=== PATIENT | male | born 1930 | race Caucasian/White ===

== ENCOUNTER 2016-10-09 08:55 | Inpatient (IN) | payer OTHER, MEDICARE ==
[~2016-10-09 08:55] MED LIST: ACETAMINOPHEN 325 MG TABLET PO PRN; ALBUTEROL SULFATE 2.5 MG/3 ML VIAL.NEB IH PRN; BISACODYL 5 MG TABLET.DR PO PRN; ENEMEEZ RC PRN; FLUNISOLIDE NS PRN; HYDROcodone/ACETAMINOPHEN 5 ML UDC PO PRN; HYDROmorphone HCL 1 MG/ML DISP.SYRIN IV PRN; LORazepam 2 MG/ML DISP.SYRIN IV PRN; ONDANSETRON HCL 4 MG TABLET PO PRN; ONDANSETRON HCL/PF 2 MG/ML VIAL IV PRN; [UNRECOGNIZED DRUG - OTHER] EACHEYE PRN
[2016-10-09] MEDS ORDERED: POLYETHYLENE GLYCOL 17 GM PO SCH (09:00)
[2016-10-09] MEDS ORDERED: LEVOTHYROXINE SODIUM 75 MCG TABLET PO SCH (09:00)
--- OUTSIDE RECORDS SUMMARY | 2016-10-09 09:08 | XMS REPORT | Continuity of Care Document ---
:1930 Author Organization [facility] ([facility]) Address [address] [place] [address] Phone [phone] Care Team Providers Name Role Phone Unavailable Primary Care Provider Unavailable Source Comments This disclosure is being made pursuant to the Care Everywhere program, applicable federal and state laws, and may not contain all informaitonavailable regarding this patient.[facility] ([facility]) Active Allergies and Adverse Reactions Not on File Current Medications Not on file Active Problems Not on file Social History Tobacco Use Types Packs/Day Years Used Date Never Assessed Plan of Care Health Maintenance Due Date Last Done Comments Hepatitis B Vaccine (1 of 3 - Primary Series) 1929 Tdap Vaccine 1940 Lipid Disorder Screening 1947 Td Vaccine 1947 Zoster Vaccine 1989 Pneumococcal Vaccine (1 of 2 - PCV13) 1994 Influenza Vaccine: Seasonal (#1) 01/08/2016 Results from Last 3 Months Not on file
[2016-10-09] MEDS: TIOTROPIUM BROMIDE 5 CAP INHALER IH SCH (09:24)
[2016-10-09] MEDS: DOCUSATE SODIUM 100 MG CAPSULE PO SCH (09:24)
[2016-10-09] MEDS: ALBUTEROL SULFATE 2.5 MG/3 ML VIAL.NEB IH SCH ×3 (11:00→18:20)
[2016-10-09] MEDS: POLYETHYLENE GLYCOL 3350 119 GM BTL PO SCH (11:08)
[2016-10-09] MEDS: LEVOTHYROXINE SODIUM 75 MCG TABLET PO SCH (11:08)
[2016-10-09] MEDS: SENNOSIDES/DOCUSATE SODIUM 1 TAB TABLET PO SCH (11:08)
[2016-10-09] MEDS ORDERED: ALBUTEROL SULFATE 2.5 MG/3 ML VIAL.NEB IH PRN (14:58)
[2016-10-09 15:14] VITALS: BP 90/54
--- NOTE | 2016-10-09 18:54 | HP ---
Chief Complaint - Chief Complaint Date of Service: 10/09/16 Time of Service: 18:42 Chief Complaint: For hospice respite care History of Present Illness: This is an 86 y/o man with a history of stroke in 2012, but with also a very rapid decline due to progressive dementia in the last six months, severe enough to interfere with oral intake to qualify for hospice, who presents today to the [facility] for the hospice respite benefit. He is comfortable, but taking very little by mouth. His family simply wishes him to remain comfortable, and we will comply with this wish. - Patient's Past Medical History Patient History - Medical: Dementia, GERD, Osteoarthritis Patient History - Cardiac/Respiratory: Asthma, COPD, CVA/Stroke, Hypertension Patient History - Cancer: No Hx of Cancer Patient History - Surgical Procedures: Appendectomy, Colonoscopy, Other - right index finger amputation Patient History - Other: None - Family History Mother Family History - Medical: , History Unknown Family History - Cardiac/Respiratory: History Unknown Family History - Cancer: History Unknown Father Family History - Medical: , History Unknown Family History - Cardiac/Respiratory: Coronary Heart Disease Family History - Cancer: History Unknown - Social History Living Situations: other Abuse History: No History of abuse Psych History: No pertinent hx Smoking Status: Former smoker Have you smoked in the past 12 months: No Do you dip or chew tobacco: No Patient requests Smoking Cessation Consult: No Initiate information on Smoking Cessation: No Alcohol Use: none Drug Use: none - Immunizations Immunizations Up to Date: Yes Hx Pneumococcal Vaccination: More Information Required to Determine History of Influenza Vaccine: More Information Required to Determine Review Of Systems (GEN) - Review of Systems Generalized/Overall Review: Present: No Symptoms Reported - unable to provide due to dementia. can ask to go to the bathroom. occasionally says yes or no. Misc: All systems neg except as marked Immunizations: IMMUNIZATION HX Immunizations Up to Date Yes History of Influenza Vaccine More Information Required Hx Pneumococcal Vaccination More Information Required Allergies/Adverse Reactions: Allergies Allergy/AdvReac Type Severity Reaction Status Date / Time tetracycline Allergy Verified 10/09/16 10:42 Home Medications: HOME MEDICATIONS Tiotropium [place] [Spiriva] 1 cap IH DAILY 06/01/13 [Last Taken Unknown] Albuterol Sulfate [Albuterol Sulfate 2.5 MG/0.5ML] 2.5 mg IH Q4H PRN 06/02/16 [ Last Taken Unknown] Albuterol Sulfate [Proventil Hfa] 6.7 gm IH Q6H 06/02/16 [Last Taken Unknown] Bisacodyl [Dulcolax] 5 mg PO DAILY PRN 06/02/16 [Last Taken Unknown] Docusate Sodium [Colace] 100 mg PO DAILY 06/02/16 [Last Taken Unknown] Docusate Sodium [Enemeez] 283 mg RC PRN 06/02/16 [Last Taken Unknown] Flunisolide 25 ml NS QID PRN 06/02/16 [Last Taken Unknown] Levothyroxine Sodium [Synthroid] 75 mcg PO DAILY 06/02/16 [Last Taken Unknown] Polyethylene Glycol 3350 [Miralax] 17 gm PO DAILY 06/02/16 [Last Taken Unknown] Sennosides/Docusate Sodium [Senna-Docusate Sodium Tablet] 1 each PO DAILY [Last Taken Unknown] Tamsulosin HCl [Flomax] 0.4 mg PO HS 06/02/16 [Last Taken Unknown] Acetaminophen [Tylenol] 650 mg PO Q4H PRN 10/09/16 [Last Taken Unknown] Ascorbic Acid [Vitamin C] 1,000 mg PO DAILY 10/09/16 [Last Taken Unknown] Aspirin 81 mg PO DAILY 10/09/16 [Last Taken Unknown] Cyanocobalamin (Vitamin B-12) [Vitamin B12] 1,000 mcg PO DAILY 10/09/16 [Last Taken Unknown] Finasteride [Proscar] 5 mg PO DAILY 10/09/16 [Last Taken Unknown] Lorazepam 0.25 mg PO Q4H PRN 10/09/16 [Last Taken Unknown] Morphine Sulfate [Morphine Sulfate 20 Mg/ml Conc. Oral Solution] 0.25 ml PO Q2H PRN 10/09/16 [Last Taken Unknown] Omeprazole 20 mg PO DAILY 10/09/16 [Last Taken Unknown] Polyvinyl Alcohol/Povidone/Pf [Refresh Classic Eye Drops] 1 drop EACHEYE BID PRN 10/09/16 [Last Taken Unknown] Exam - Exam Vital Signs: Vital Signs - Last Taken Selected Entries 10/09/16 15:13 Temperature 37.5 C Temperature Tympanic Source Pulse Rate 110 H Respiratory 16 Rate Respiratory Normal Depth Respiratory Normal Effort Respiratory Normal Pattern Blood Pressure 90/54 Blood Pressure Supine Position O2 Sat by Pulse 94 Oximetry Oxygen Delivery Room Air Method Constitutional: Present: Cooperative, Well developed, No distress, Elderly, Thin and frail, Looks Older than stated age ENT Exam: Present: normal ENT inspection, dry mucous membranes Eye Exam: bilateral eye: normal inspection, PERRL, EOMI Neck: Present: normal inspection Back Exam: Present: normal inspection Respiratory: Present: lungs clear, no respiratory distress Cardiovascular/Chest: Present: regular rate, rhythm, no edema Abdomen: Present: Normal bowel sounds, soft, nontender, nondistended, no rebound tenderness, no hepatospenomegaly, no masses Extremity: Present: normal inspection, no pedal edema Skin Exam: Present: no cyanosis, cool/dry Neurologic: Present: disoriented x 3 Appearance: Present: appropriate appearance, neat Eye contact: Present: cooperative Assessment/Plan - Assessment/Plan (1) CVA (cerebral vascular accident) Assessment: Comfort care, see comfort care orders. Problem: Resolved Qualifiers: CVA mechanism: unspecified Qualified Code(s): I63.9 - Cerebral infarction, unspecified (2) Starvation due to lack of food Assessment: starvation, due to lack of food, due to anorexia, due to profound dementia. 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 Qualifiers: (7) Dementia Problem: Chronic Qualifiers: Dementia type: Alzheimer's disease Alzheimer's disease onset: late-onset Dementia behavioral disturbance: without behavioral disturbance Qualified Code (s): G30.1 - Alzheimer's disease with late onset; F02.80 - Dementia in other diseases classified elsewhere without behavioral disturbance (8) GERD (gastroesophageal reflux disease) Problem: Chronic Qualifiers: Esophagitis presence: without esophagitis (9) HTN (hypertension) Problem: Chronic Qualifiers: Hypertension type: essential hypertension (10) Hypothyroidism Problem: Chronic Qualifiers: Hypothyroidism type: acquired
[2016-10-09] MEDS ORDERED: LORazepam 0.5 MG TABLET PO PRN (19:20)
[2016-10-09] MEDS ORDERED: MORPHINE SULFATE 10 MG/0.5 ML SYRINGE PO PRN (19:21)
[2016-10-09] MEDS ORDERED: POLYVINYL ALCOHOL 150 DROP BTL EACHEYE PRN (19:25)
[2016-10-09] MEDS: TAMSULOSIN HCL 0.4 MG CAP.SR.24H PO SCH (19:54)
[2016-10-10] MEDS: ALBUTEROL SULFATE 2.5 MG/3 ML VIAL.NEB IH SCH ×3 (00:28→18:25)
[2016-10-10] MEDS: LEVOTHYROXINE SODIUM 75 MCG TABLET PO SCH (07:22)
[2016-10-10] MEDS: PANTOPRAZOLE SODIUM 20 MG TABLET.DR PO SCH (07:33)
[2016-10-10] MEDS: SENNOSIDES/DOCUSATE SODIUM 1 TAB TABLET PO SCH (08:46)
[2016-10-10] MEDS: DOCUSATE SODIUM 100 MG CAPSULE PO SCH (08:46)
[2016-10-10] MEDS: FINASTERIDE 5 MG TABLET PO SCH (08:47)
[2016-10-10] MEDS: TIOTROPIUM BROMIDE 5 CAP INHALER IH SCH (08:50)
[2016-10-10] MEDS ORDERED: OMEPRAZOLE 20 MG CAPSULE.SA PO SCH (09:00)
[2016-10-10] MEDS: POLYETHYLENE GLYCOL 3350 119 GM BTL PO SCH (09:18)
[2016-10-10] MEDS: TAMSULOSIN HCL 0.4 MG CAP.SR.24H PO SCH (19:26)
[2016-10-11] MEDS: LEVOTHYROXINE SODIUM 75 MCG TABLET PO SCH (07:26)
[2016-10-11] MEDS: PANTOPRAZOLE SODIUM 20 MG TABLET.DR PO SCH (07:26)
[2016-10-11] MEDS: TIOTROPIUM BROMIDE 5 CAP INHALER IH SCH (08:45)
[2016-10-11] MEDS: DOCUSATE SODIUM 100 MG CAPSULE PO SCH (08:47)
[2016-10-11] MEDS: POLYETHYLENE GLYCOL 3350 119 GM BTL PO SCH (08:47)
[2016-10-11] MEDS: FINASTERIDE 5 MG TABLET PO SCH (08:47)
[2016-10-11] MEDS: SENNOSIDES/DOCUSATE SODIUM 1 TAB TABLET PO SCH (08:47)
[2016-10-11] MEDS: TAMSULOSIN HCL 0.4 MG CAP.SR.24H PO SCH (18:21)
[2016-10-12] MEDS: LEVOTHYROXINE SODIUM 75 MCG TABLET PO SCH (06:45)
[2016-10-12] MEDS: PANTOPRAZOLE SODIUM 20 MG TABLET.DR PO SCH (06:46)
[2016-10-12] MEDS: FINASTERIDE 5 MG TABLET PO SCH (08:26)
[2016-10-12] MEDS: DOCUSATE SODIUM 100 MG CAPSULE PO SCH (08:26)
[2016-10-12] MEDS: SENNOSIDES/DOCUSATE SODIUM 1 TAB TABLET PO SCH (08:26)
[2016-10-12] MEDS: TIOTROPIUM BROMIDE 5 CAP INHALER IH SCH (08:28)
[2016-10-12] MEDS: POLYETHYLENE GLYCOL 3350 119 GM BTL PO SCH (08:28)
[2016-10-12] MEDS: TAMSULOSIN HCL 0.4 MG CAP.SR.24H PO SCH (18:49)
[2016-10-13] MEDS: PANTOPRAZOLE SODIUM 20 MG TABLET.DR PO SCH (06:34)
[2016-10-13] MEDS: LEVOTHYROXINE SODIUM 75 MCG TABLET PO SCH (06:35)
[2016-10-13] MEDS: SENNOSIDES/DOCUSATE SODIUM 1 TAB TABLET PO SCH (09:57)
[2016-10-13] MEDS: DOCUSATE SODIUM 100 MG CAPSULE PO SCH (09:57)
[2016-10-13] MEDS: FINASTERIDE 5 MG TABLET PO SCH (09:57)
[2016-10-13] MEDS: TIOTROPIUM BROMIDE 5 CAP INHALER IH SCH (09:58)
[2016-10-13] MEDS: POLYETHYLENE GLYCOL 3350 119 GM BTL PO SCH (09:58)
[2016-10-13] MEDS: TAMSULOSIN HCL 0.4 MG CAP.SR.24H PO SCH (18:15)
[2016-10-14] MEDS: PANTOPRAZOLE SODIUM 20 MG TABLET.DR PO SCH (07:20)
[2016-10-14] MEDS: LEVOTHYROXINE SODIUM 75 MCG TABLET PO SCH (07:20)
[2016-10-14] MEDS: FINASTERIDE 5 MG TABLET PO SCH (10:05)
[2016-10-14] MEDS: DOCUSATE SODIUM 100 MG CAPSULE PO SCH (10:05)
[2016-10-14] MEDS: POLYETHYLENE GLYCOL 3350 119 GM BTL PO SCH (10:05)
[2016-10-14] MEDS: TIOTROPIUM BROMIDE 5 CAP INHALER IH SCH (10:05)
[2016-10-14] MEDS: SENNOSIDES/DOCUSATE SODIUM 1 TAB TABLET PO SCH (10:05)
--- NOTE | 2016-10-14 11:47 | DS ---
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 Qualifiers: (7) Dementia Problem: Chronic Qualifiers: Dementia type: Alzheimer's disease Alzheimer's disease onset: late-onset Dementia behavioral disturbance: without behavioral disturbance Qualified Code (s): G30.1 - Alzheimer's disease with late onset; F02.80 - Dementia in other diseases classified elsewhere without behavioral disturbance (8) GERD (gastroesophageal reflux disease) Problem: Chronic Qualifiers: Esophagitis presence: without esophagitis (9) HTN (hypertension) Problem: Chronic Qualifiers: Hypertension type: essential hypertension (10) Hypothyroidism Problem: Chronic Qualifiers: Hypothyroidism type: acquired Description of Stay: Patient was supported while here in hospice respite care. He is clinically about the same. He will be returned home with hospice consult, the expected outcome is terminal. Procedures Performed: none Discharge Disposition: Hospice Disposition: Home self-care Condition: Critical Discharge Activity: Other Discharge Diet: Other Discharge Level of Care:: Hospice - Home Referrals: Raymond Gerard MD [Primary Care Provider] - Problem Oriented Discharge Instructions to Patient/Family: Hospice Additional Patient Instructions (free text): [facility], please call and fax discharge information. Prescriptions (Any new or edited meds): HYDROcodone/ACETAMINOPHEN [Hydrocodone-Apap 2.5 Mg-167 Mg/5 Ml Solution] 15 ml PO Q3H PRN #480 ml PRN Reason: Moderate Pain LORazepam [Ativan] 1 mg IV Q2H PRN #20 disp.syrin PRN Reason: Anxiety Morphine Sulfate [Morphine Sulfate 20 Mg/ml Conc. Oral Solution] 0.25 ml PO Q2H PRN #120 ml PRN Reason: Pain Complete Home Medications List: Complete Home Medication List: Albuterol Sulfate [Albuterol Sulfate 2.5 MG/0.5ML] 2.5 mg IH Q4H PRN 06/02/16 Bisacodyl [Dulcolax] 5 mg PO DAILY PRN 06/02/16 Docusate Sodium [Enemeez] 283 mg RC PRN 06/02/16 Flunisolide 25 ml NS QID PRN 06/02/16 Levothyroxine Sodium [Synthroid] 75 mcg PO DAILY 06/02/16 Polyvinyl Alcohol/Povidone/Pf [Refresh Classic Eye Drops] 1 drop EACHEYE BID PRN 10/09/16 Acetaminophen [Tylenol] 650 mg PO QID PRN #0 tablet 10/14/16 HYDROcodone/ACETAMINOPHEN [Hydrocodone-Apap 2.5 Mg-167 Mg/5 Ml Solution] 15 ml PO Q3H PRN #480 ml 10/14/16 LORazepam [Ativan] 1 mg IV Q2H PRN #20 disp.syrin 10/14/16 Morphine Sulfate [Morphine Sulfate 20 Mg/ml Conc. Oral Solution] 0.25 ml PO Q2H PRN #120 ml 10/14/16
== END 2016-10-14 13:33 | disposition hospice, home (50) | DRG 57 ==
LOC: MS 09:05
PROVIDERS: ADMIT Allergy & Immunology; ATTEND Allergy & Immunology
DX: G30.1 Alzheimer's disease with late onset (principal); Z68.1 Body mass index [BMI] 19.9 or less, adult; F02.80 Dementia in other diseases classified elsewhere, unspecified severity, without behavioral disturbance, psychotic disturbance, mood disturbance, and anxiety; R63.0 Anorexia; Z51.5 Encounter for palliative care; J43.9 Emphysema, unspecified; E03.9 Hypothyroidism, unspecified; Z86.73 Personal history of transient ischemic attack (TIA), and cerebral infarction without residual deficits; Z87.891 Personal history of nicotine dependence